=== PATIENT | male | born 1965 ===

== ENCOUNTER 2023-07-03 09:46 | Day surgery (SDC) | payer MEDICARE ==
[2023-07-02 11:20] VITALS: BMI 25.0
[2023-07-03] MEDS ORDERED: Oxymetazoline HCl 0.05% (30 ML BOT) ONE (10:30)
[2023-07-03 10:57] LABS: #Basophils 0.1 thou/uL (0.0-0.2); #Eosinphils 0.2 thou/uL (0.0-0.7); #Monocytes 0.4 thou/uL (0.11-0.59); #Neutrophils 4.8 thou/uL (1.40-6.50); %Basophils 0.7 % (0.0-1.0); %Eosinophils 2.8 % (0.0-10.0); %Lymphocytes 19.5 % (21.0-51.0); %Monocytes 5.1 % (0.0-10.0); %Neutrophils 70.7 % (42.0-75.0); Hematocrit 40.3 % (42.0-52.0); Hemoglobin 13.7 g/dL (14.0-18.0); Mean Corpuscular Hemoglobin 29.1 pg (27.0-31.0); Mean Corpuscular Volume 85.7 fl (78.0-98.0); Mean Platelet Volume 10.1 fL (7.4-10.4); Platelet Count 241 10x3/uL (130-400); RBC Distribution Width 12.9 % (11.5-14.5); White Blood Cell (WBC) Count 6.8 10x3/uL (4.8-10.8)
[2023-07-03 11:21] LABS: Anion Gap 11 mmol/L (10-20); BUN (Urea Nitrogen) 16 mg/dL (8.4-25.7); Calc. Creatinine Clearance 65 mL/min (70-130); Calcium 9.1 mg/dL (7.8-10.44); Carbon Dioxide 28 mmol/L (22-29); Chloride 107 mmol/L (98-107); Estimated GFR 55; Glucose 107 mg/dL (70-105); Potassium 3.6 mmol/L (3.5-5.1); Sodium 142 mmol/L (136-145)
[2023-07-03] MEDS ORDERED: EPINEPHrine 1 MG/ML AMP ONE ×2 (12:03→13:27)
[2023-07-03] MEDS ORDERED: Triamcinolone 40 MG/ML VIAL ONE (12:04)
[2023-07-03] MEDS ORDERED: SUGAMMADEX SODIUM 200 MG/2 ML VIAL ONE (12:22)
[2023-07-03] MEDS ORDERED: fentaNYL PF 100 MCG/2 ML SYRINGE ONE ×2 (12:22→14:02)
[2023-07-03] MEDS ORDERED: Dexamethasone 20 MG/5 ML VIAL ONE (12:51)
[2023-07-03] MEDS ORDERED: Lidocaine 1% PF 5 ML VIAL ONE ×2 (12:51→13:27)
[2023-07-03] MEDS ORDERED: PROPOFOL 200 MG/20 ML VIAL ONE (12:51)
[2023-07-03] MEDS ORDERED: Rocuronium Bromide 10 MG/ML (10ML VIAL) ONE (12:51)
[2023-07-03] MEDS ORDERED: Ondansetron PF 4 MG/2 ML Vial ONE (12:51)
[2023-07-03] MEDS ORDERED: Lidocaine 1% (PF) 30 ML VIAL ONE (13:27)
== END 2023-07-03 15:15 | disposition home or self-care (01) ==
LOC: SDC 09:46
PROVIDERS: ATTEND Specialist
PROC: 09BM8ZZ Excision of Nasal Septum, Via Natural or Artificial Opening Endoscopic (ICD-10-PCS; principal; 2023-07-03)
PROC: 09BL8ZZ Excision of Nasal Turbinate, Via Natural or Artificial Opening Endoscopic (ICD-10-PCS; 2023-07-03)
PROC: 09BV8ZZ Excision of Left Ethmoid Sinus, Via Natural or Artificial Opening Endoscopic (ICD-10-PCS; 2023-07-03)
PROC: 09BW8ZZ Excision of Right Sphenoid Sinus, Via Natural or Artificial Opening Endoscopic (ICD-10-PCS; 2023-07-03)
PROC: 09BX8ZZ Excision of Left Sphenoid Sinus, Via Natural or Artificial Opening Endoscopic (ICD-10-PCS; 2023-07-03)
PROC: 09BQ8ZZ Excision of Right Maxillary Sinus, Via Natural or Artificial Opening Endoscopic (ICD-10-PCS; 2023-07-03)
PROC: 09BR8ZZ Excision of Left Maxillary Sinus, Via Natural or Artificial Opening Endoscopic (ICD-10-PCS; 2023-07-03)
PROC: 09BS8ZZ Excision of Right Frontal Sinus, Via Natural or Artificial Opening Endoscopic (ICD-10-PCS; 2023-07-03)
PROC: 09BT8ZZ Excision of Left Frontal Sinus, Via Natural or Artificial Opening Endoscopic (ICD-10-PCS; 2023-07-03)
PROC: 09BU8ZZ Excision of Right Ethmoid Sinus, Via Natural or Artificial Opening Endoscopic (ICD-10-PCS; 2023-07-03)
DX: J34.2 Deviated nasal septum (principal); J34.3 Hypertrophy of nasal turbinates; J32.4 Chronic pansinusitis
CPT/HCPCS: 80048; 85025; 93005; 93010; J0171; J1100; J2001; J2405; J2704; J3301